=== PATIENT | female | born 1960 | race Asian ===

== ENCOUNTER 2023-04-22 10:09 | Day surgery (SDC) | payer OTHER ==
[~2023-04-22] VITALS: Ht 165.1 cm; Wt 72.6 kg
[2023-04-22] MEDS ORDERED: fentaNYL citrate 0.05 MG/ML VIAL ONE (12:35)
[2023-04-22] MEDS: fentaNYL citrate 0.05 MG/ML VIAL IVP ONE (13:02)
[2023-04-22] MEDS: LIDOCAINE 2% 100 MG/5 ML UJET TP ONE (13:14)
== END 2023-04-22 14:10 | disposition home or self-care (01) ==
LOC: MDS 10:09 → MMU 10:36 → MDS 14:10
PROVIDERS: ATTEND Internal Medicine Gastroenterology
DX: Z12.11 Encounter for screening for malignant neoplasm of colon (principal); E11.9 Type 2 diabetes mellitus without complications; E78.00 Pure hypercholesterolemia, unspecified; Z79.84 Long term (current) use of oral hypoglycemic drugs
CPT/HCPCS: 45378; 82948; J3010